=== PATIENT | female | born 1985 | race Caucasian/White ===

== ENCOUNTER 2019-12-01 19:26 | Inpatient (IN) ==
--- OUTSIDE RECORDS SUMMARY | 2019-12-01 19:36 | External Medical Summary | Continuity of Care Document ---
:1985 Author Name Suellen Vivar Address Unavailable Unavailable , Care Team Providers Name Role Phone Tabitha Pérez M.D. Unavailable [email or web address] PCP, NO Unavailable Unavailable Unavailable Unavailable Unavailable Problems Encounter for initial prescription of contraceptives (V25.02 ) (Z30.019) Amenorrhea (626.0) (N91.2) Abnormal weight loss (783.21) (R63.4) Lump or mass in breast (611.72) (N63.0) Unconfirmed (V72.40) (Z32.00) Fatigue (780.79) (R53.83) Vaginal discharge (623.5) (N89.8) Menorrhagia (626.2) (N92.0) Mammogram abnormal (793.80) (R92.8) Encounter for routine pelvic examination (V72.31) (Z01.419) Encounter for Rh blood typing (V72.86) (Z01.83) Breast mass (611.72) (N63.0) Current Smoker Allergies and Adverse Reactions Penicillins (Allergy) Reaction: Swelling Medications Norethindrone Acetate 5 MG Oral Tablet; One tablet 4 times daily for 4 days, 3 times daily for 4 days, 2 times daily for 4 days, then daily for 4 days Cb Pérez Start: 15-Sep-2012 Quantity: 40 Refills: 0 Procedures History of Tonsillectomy Status: Complet ed History of Dilation And Curettage Status : Completed History of Tonsillectomy Status: Complet ed Encounter for initial prescription of contraceptives Immunizations Immunizations not documented Family History Mother Family history of Hypertension (V17.49) Status: Active Family history of Lung Cancer (V16.1) Status: Active Family history of Adopted Status: Active Social History - Smoking Status Smoker. current status unknown Smoker. current status unknown Plan of Treatment Planned Observations Planned Goals not documented Results No Known Results Results not documented
[2019-12-01] MEDS ORDERED: OXYTOCIN 30 UNITS/500 ML BAG IV PRN (20:47)
[2019-12-01 21:24] LABS: Hematocrit (blood only) 40.6 % (37-47); Hemoglobin 14.2 g/dL (12.0-16.0); Mean Corpuscular Hemoglobin 34.6 pg (25-34); Mean Platelet Volume 11.5 fL (7.4-10.4); Platelet Count 138 K/uL (130-400); RDW Coefficient of Variation 13.2 % (11.5-14.5); RDW Standard Deviation 47.5 fL (36.4-46.3); White Blood Count 9.73 K/uL (4.8-10.8)
[2019-12-01] MEDS ORDERED: VANCOMYCIN HCL 1,000 MG in SODIUM CHLORIDE 0.9% 250 ML IV PRN (21:35)
--- NOTE | 2019-12-01 21:43 | Obstetrical Progress Note ---
Date of Service December 01, 2019 Subjective Admit Note 33 F [id number] at 37.5 weeks with SROM now 0. GBS status unknown as patient presented to [facility] who was to deliver at [facility]. T Cat 1. Will start antibiotics and patient planning for epidural. Results & Data Vital Signs (Past 12 Hours) Vital Signs Temp Pulse Resp BP 12/01/19 21:00 20 12/01/19 20:30 20 12/01/19 20:00 20 12/01/19 19:57 37.1 C 20 12/01/19 19:43 133 H 116/76
[2019-12-01] MEDS ORDERED: VANCOMYCIN HCL 1,000 MG in SODIUM CHLORIDE 0.9% 250 ML IV STA (21:54)
[2019-12-01] MEDS: LACTATED RINGER'S 1,000 ML IV PRN (22:14)
[2019-12-02] MEDS ORDERED: BUPIVACAINE 0.25% 30 ML VIAL ONE (00:15)
[2019-12-02] MEDS ORDERED: ePHEDrine sulfate 50 MG/ML AMP ONE (00:15)
[2019-12-02] MEDS ORDERED: fentaNYL citrate 100 MCG/2 ML VIAL ONE (00:15)
[2019-12-02] MEDS ORDERED: fentaNYL 2MCG/ML ROPIV 1.25MG/ML 100 ML BAG EPI ONE (00:16)
[2019-12-02] MEDS: LACTATED RINGER'S 1,000 ML IV PRN ×2 (00:47→08:30)
[2019-12-02] MEDS ORDERED: DiphenhydrAMINE HCL 50 MG/ML VIAL IV PRN (01:02)
[2019-12-02] MEDS ORDERED: NALBUPHINE HCL INJ 10 MG/ML AMP IV PRN (01:02)
[2019-12-02] MEDS ORDERED: fentaNYL 2MCG/ML ROPIV 1.25MG/ML 100 ML BAG EPI PRN (01:02)
[2019-12-02] MEDS ORDERED: ONDANSETRON INJ 2 MG/ML 2 ML VIAL IV PRN (01:02)
[2019-12-02] MEDS ORDERED: ePHEDrine sulfate 50 MG/ML AMP IV PRN (01:02)
[2019-12-02] MEDS ORDERED: NALOXONE HCL 1 MG in SODIUM CHLORIDE 0.9% 1000ML 1,000 ML IV PRN (01:02)
[2019-12-02] MEDS ORDERED: NALOXONE HCL 0.4 MG/1 ML VIAL/CARP IV PRN (01:02)
--- NOTE | 2019-12-02 01:07 | Anesthesiology Consultation ---
Date of Service December 02, 2019 Assessment & Plan (1) Encounter for pre-operative examination: Chart Review Chart Review: Acceptable Risk for Labor Epidural Consults Requested none ASA ASA2 Proposed Anesthesia Anesthesia Type: Labor Epidural Risk / Benefits Reviewed With: PT / POA / Parent / Guardian, Accepts Plan and Informed Consent Obtained History Height/Weight Height: 5 ft 1 in Weight: 71.214 kg Allergies Allergy/AdvReac Type Severity Reaction Status Date / Time amoxicillin Allergy Mild UNKNOWN Verified 06/24/12 21:49 Penicillins Allergy Unknown Rash Verified 12/01/19 19:54 acetaminophen [From Percocet] Allergy Rash Verified 12/01/19 19:54 oxycodone [From Percocet] Allergy Rash Verified 12/01/19 19:54 Medications Home Medications Medication Instructions Recorded Confirmed Last Taken aspirin 81 mg PO DAILY 12/01/19 12/01/19 12/01/19 vit-iron fum-folic ac 1 tab PO DAILY 12/01/19 12/01/19 12/01/19 [ Vitamin] Active Medications Generic Name Dose Route Start Last Admin Trade Name Freq PRN Reason Stop Dose Admin Lactated Ringer's 1,000 mls @ 125 mls/hr 12/01/19 20:47 12/02/19 00:47 Lr IV 12/03/19 20:46 125 mls/hr .Q8H PRN Administration L&D Protocol Protocol Past Medical History Medical History Depression Exercise / Class Metabolic Activity II 4-5 Yardwork/Stairs/Walk up hill Past Surgical History Surgical History H/O dilation and curettage History of tonsillectomy History of tooth extraction Past Anesthesia History No Hx of Anesthesia Complications and No Family Hx of Anesthesia Complications History of PONV No Hx of PONV and No Hx of Motion Sickness Social History Smoking Status: Current every day smoker tobacco type: cigarettes Smoking cigarettes per day: 15 Do You Dip or Chew Tobacco: No Hx Alcohol Use: No Hx Substance Use: No substance use type: does not use Physical Exam Vital Signs Last Vital Signs Temp 97.7 F 12/01/19 23:00 Pulse 102 H 12/02/19 01:01 Resp 18 12/01/19 23:00 BP 122/81 12/02/19 00:49 Pulse Ox 95 12/02/19 01:01 ENMT Mouth: no dentition abnormality Thyromental Distance: > or= 3.5 Finger Breadths Mallampati Class: II Neck normal visual inspection Respiratory normal respiratory effort Auscultation: lungs clear to auscultation bilaterally Cardiovascular Rate/Rhythm: regular rate and regular rhythm Testing Laboratory Results 12/01/19 20:59
[2019-12-02] MEDS ORDERED: OXYTOCIN 30 UNITS/500 ML BAG IV PRN ×2 (01:41→10:45)
--- NOTE | 2019-12-02 01:44 | Obstetrical Progress Note ---
Date of Service December 02, 2019 Physical Exam Genitourinary: OB Exam Abdomen: + estimated weight (7-8 lbs) and + irregular contractions Manual OB Exam: + amniotic fluid clear OB Exam Monitor Tracing: + external FHT monitor used, + external uterine monitor used, + category I and + normal FHT variability cervix unchanged will start Oxytocin to augment contractions Results & Data Vital Signs (Past 12 Hours) Vital Signs Temp Pulse Resp BP Pulse Ox 12/02/19 01:41 117 H 96 12/02/19 01:38 102 H 114/58 L 12/02/19 01:36 101 H 115/64 92 12/02/19 01:34 105 H 113/68 12/02/19 01:32 102 H 111/72 12/02/19 01:31 99 H 93 12/02/19 01:30 107 H 131/73 12/02/19 01:28 100 H 121/65 12/02/19 01:26 111 H 117/66 94 12/02/19 01:24 96 H 121/69 12/02/19 01:21 103 H 95 12/02/19 01:16 107 H 96 12/02/19 01:12 116 H 132/80 12/02/19 01:11 107 H 98 12/02/19 01:06 109 H 96 12/02/19 01:01 102 H 95 12/02/19 00:56 110 H 95 12/02/19 00:52 106 H 94 12/02/19 00:51 104 H 94 12/02/19 00:49 93 H 122/81 12/02/19 00:46 99 H 96 12/02/19 00:41 103 H 96 12/02/19 00:36 112 H 97 12/02/19 00:33 106 H 93 12/02/19 00:31 102 H 97 12/02/19 00:26 101 H 97 12/02/19 00:23 110 H 118/76 12/02/19 00:21 99 H 95 12/01/19 23:01 113 H 119/64 12/01/19 23:00 36.5 C 18 12/01/19 22:30 20 12/01/19 21:00 20 12/01/19 20:30 20 12/01/19 20:00 20 12/01/19 19:57 37.1 C 20 12/01/19 19:43 133 H 116/76
--- NOTE | 2019-12-02 08:42 | Obstetrical Progress Note ---
Date of Service December 02, 2019 Physical Exam Genitourinary: Manual OB Exam: + cervical dilation 4 cm and 5 cm, + cervical effacement 90%, + station -1 and + amniotic fluid (small pocket of fluid ruptured with amni-hook) clear OB Exam Monitor Tracing: + external FHT monitor used, + external uterine monitor used, + category I and + normal FHT variability Results & Data Vital Signs (Past 12 Hours) Vital Signs Temp Pulse Resp BP Pulse Ox 12/02/19 08:38 73 91 12/02/19 08:36 71 91 12/02/19 08:31 75 90 12/02/19 08:29 79 91 12/02/19 08:26 85 90 12/02/19 08:25 78 98/55 L 12/02/19 08:24 78 91 12/02/19 08:21 78 91 12/02/19 08:18 71 91 12/02/19 08:16 78 91 12/02/19 08:12 72 91 12/02/19 08:11 73 92 12/02/19 08:09 80 103/61 12/02/19 08:06 103 H 93 12/02/19 08:01 94 H 93 12/02/19 07:56 95 H 94 12/02/19 07:54 92 H 105/65 12/02/19 07:51 89 91 12/02/19 07:49 84 91 12/02/19 07:46 97 H 93 12/02/19 07:41 91 H 94 12/02/19 07:39 100 H 100/56 L 12/02/19 07:36 79 93 12/02/19 07:31 91 H 92 12/02/19 07:26 95 H 94 12/02/19 07:24 88 105/61 12/02/19 07:21 96 H 95 12/02/19 07:19 90 90 12/02/19 07:16 87 92 12/02/19 07:12 74 91 12/02/19 07:11 78 92 12/02/19 07:09 36.9 C 81 18 94/51 L 12/02/19 07:06 85 93 12/02/19 07:01 96 H 94 12/02/19 06:56 95 H 93 12/02/19 06:54 77 100/56 L 12/02/19 06:51 75 92 12/02/19 06:46 82 92 12/02/19 06:41 104 H 93 12/02/19 06:36 88 91 12/02/19 06:35 82 91 12/02/19 06:31 91 H 93 12/02/19 06:30 36.7 C 16 12/02/19 06:28 36.7 C 16 12/02/19 06:26 93 H 93 12/02/19 06:25 88 104/61 12/02/19 06:21 92 H 95 12/02/19 06:16 89 95 12/02/19 06:11 101 H 96 12/02/19 06:09 86 106/61 12/02/19 06:06 73 90 12/02/19 06:01 76 90 12/02/19 05:56 74 90 12/02/19 05:54 73 94/55 L 12/02/19 05:51 74 91 12/02/19 05:46 78 91 12/02/19 05:41 76 91 12/02/19 05:40 77 91 12/02/19 05:39 82 97/54 L 12/02/19 05:36 80 91 12/02/19 05:31 76 91 12/02/19 05:30 16 12/02/19 05:29 78 91 12/02/19 05:26 77 91 12/02/19 05:25 76 97/53 L 12/02/19 05:24 77 91 12/02/19 05:21 79 92 12/02/19 05:18 82 91 12/02/19 05:16 87 92 12/02/19 05:11 84 91 12/02/19 05:09 88 90/51 L 05 05:06 94 H 92 12/02/19 05:04 85 91 12/02/19 05:01 90 92 12/02/19 04:56 100 H 92 12/02/19 04:54 96 H 100/59 L 12/02/19 04:51 84 93 12/02/19 04:46 99 H 95 12/02/19 04:41 115 H 93 12/02/19 04:39 91 H 101/58 L 12/02/19 04:36 88 94 12/02/19 04:35 36.5 C 18 12/02/19 04:31 95 H 94 01/05/20 04:30 20 12/02/19 04:26 105 H 94 12/02/19 04:25 82 104/61 12/02/19 04:21 80 92 12/02/19 04:20 85 91 12/02/19 04:16 85 93 12/02/19 04:11 80 108/63 93 12/02/19 04:06 85 93 12/02/19 04:01 91 H 93 12/02/19 03:58 84 91 12/02/19 03:56 85 92 12/02/19 03:54 80 113/60 12/02/19 03:51 82 93 12/02/19 03:46 84 93 12/02/19 03:41 90 93 12/02/19 03:40 72 101/54 L 12/02/19 03:37 76 90 12/02/19 03:36 77 90 12/02/19 03:31 78 18 91 12/02/19 03:26 81 91 12/02/19 03:25 78 93/51 L 91 12/02/19 03:21 78 90 12/02/19 03:20 80 91 12/02/19 03:16 78 91 12/02/19 03:11 80 92 12/02/19 03:09 79 98/52 L 91 12/02/19 03:06 83 91 12/02/19 03:02 80 91 12/02/19 03:01 84 91 12/02/19 02:57 85 91 12/02/19 02:56 84 92 12/02/19 02:55 80 104/53 L 12/02/19 02:51 86 93 12/02/19 02:46 91 H 94 12/02/19 02:44 86 91 12/02/19 02:41 95 H 93 12/02/19 02:39 108 H 110/57 L 12/02/19 02:36 90 93 12/02/19 02:31 99 H 94 12/02/19 02:30 37.1 C 18 12/02/19 02:26 85 96 12/02/19 02:24 90 115/73 12/02/19 02:21 118 H 94 12/02/19 02:16 100 H 92 12/02/19 02:12 103 H 90 12/02/19 02:11 108 H 93 01/05/20 02:10 109 H 114/69 12/02/19 02:06 104 H 93 12/02/19 02:02 113 H 111/67 12/02/19 02:01 109 H 92 12/02/19 02:00 103 H 91 12/02/19 01:56 115 H 94 12/02/19 01:54 88 110/65 12/02/19 01:53 94 H 91 12/02/19 01:51 97 H 92 12/02/19 01:46 101 H 94 12/02/19 01:41 117 H 96 12/02/19 01:38 102 H 114/58 L 12/02/19 01:36 101 H 115/64 92 12/02/19 01:34 105 H 113/68 12/02/19 01:32 102 H 111/72 12/02/19 01:31 99 H 93 12/02/19 01:30 107 H 131/73 12/02/19 01:28 100 H 121/65 12/02/19 01:26 111 H 117/66 94 12/02/19 01:24 96 H 121/69 12/02/19 01:21 103 H 95 12/02/19 01:16 107 H 96 12/02/19 01:12 116 H 132/80 12/02/19 01:11 107 H 98 12/02/19 01:06 109 H 96 12/02/19 01:01 102 H 95 12/02/19 00:56 110 H 95 12/02/19 00:52 106 H 94 12/02/19 00:51 104 H 94 12/02/19 00:49 93 H 122/81 12/02/19 00:46 99 H 96 12/02/19 00:41 103 H 96 12/02/19 00:36 112 H 97 12/02/19 00:33 106 H 93 12/02/19 00:31 102 H 97 12/02/19 00:26 101 H 97 12/02/19 00:23 110 H 118/76 12/02/19 00:21 99 H 95 12/01/19 23:01 113 H 119/64 12/01/19 23:00 36.5 C 18 12/01/19 22:30 20 12/01/19 21:00 20
--- NOTE | 2019-12-02 10:28 | Delivery Summary ---
Vaginal Delivery Summary Date of Service December 02, 2019 Supervising Physician Co-Signing Physician Notes Delivery Note live male over intact perineum with delayed cord clamping with Apgars 8/9 weight pending. Cord blood obtained followed by spontaneous delivery of intact placenta. First degree tear repaired with 3/0 Vicryl suture. EBL 200 ml. Final sponge needle and instrument count are correct. Mom and baby stable.
[2019-12-02] MEDS ORDERED: SUPERCREAM 0.870% 15 GM JAR EXT PRN (10:45)
[2019-12-02] MEDS ORDERED: HYDROCORTISONE ACETATE 25 MG SUPP PR PRN (10:45)
[2019-12-02] MEDS ORDERED: BENZOCAINE 20% AER SPR 82.5 GM CAN EXT PRN (10:45)
[2019-12-02] MEDS ORDERED: bisacodyL 10 MG SUPP PR PRN (10:45)
--- NOTE | 2019-12-02 11:47 | Anesthesia Procedure Note ---
Date of Service December 02, 2019 Anesthesia Post Epidural Note Vital Signs Vital Signs: Temp Pulse Resp BP Pulse Ox 37.3 C 97 H 18 108/61 91 12/02/19 08:46 12/02/19 11:36 12/02/19 08:46 12/02/19 11:36 12/02/19 10:09 Notes Mental Status: alert / awake / arousable Nausea / Vomiting: adequately controlled Pain: adequately controlled Airway Patency, RR, SpO2: stable & adequate BP & HR: stable & adequate Hydration State: stable & adequate Neuraxial Anesthesia: was administered and sensory block is resolving Anesthetic Complications: no major complications apparent Epidural: Removed without complications and With tip intact
[2019-12-02] MEDS: IBUPROFEN 600 MG TAB PO PRN ×2 (12:46→20:10)
[2019-12-02] MEDS: ACETAMINOPHEN 325 MG TAB PO PRN ×2 (14:44→21:19)
[2019-12-02] MEDS: DOCUSATE SODIUM 100 MG CAP PO SCH (20:10)
[2019-12-03] MEDS: IBUPROFEN 600 MG TAB PO PRN (03:18)
[2019-12-03 07:13] LABS: Hematocrit (blood only) 34.8 % (37-47); Hemoglobin 11.9 g/dL (12.0-16.0); Mean Corpuscular Hemoglobin 34.2 pg (25-34); Mean Corpuscular Hgb Conc 34.2 g/dL (32-36); Mean Platelet Volume 11.6 fL (7.4-10.4); Platelet Count 132 K/uL (130-400); RDW Coefficient of Variation 13.4 % (11.5-14.5); RDW Standard Deviation 48.3 fL (36.4-46.3); Red Blood Count 3.48 M/uL (4.2-5.4); White Blood Count 7.55 K/uL (4.8-10.8)
[2019-12-03] MEDS ORDERED: PRENATAL VITAMIN 1 TAB PO SCH (08:00)
[2019-12-03] MEDS: DOCUSATE SODIUM 100 MG CAP PO SCH (08:58)
[2019-12-03] MEDS ORDERED: NON-FORMULARY MEDICATION (Prenatal Vit-Iron Fum-Folic Ac [Prenatal Vitamin] 1 TAB) PO SCH (09:00)
[2019-12-03] MEDS ORDERED: ASPIRIN 81 MG ECTAB PO SCH (09:00)
[2019-12-03] MEDS ORDERED: DIPHTHERIA/TETANUS/PERTUSSIS 0.5 ML SYR/VIAL IM ONE (09:00)
--- NOTE | 2019-12-03 09:30 | Obstetrical Progress Note ---
Date of Service December 03, 2019 Assessment & Plan (1) Normal delivery: PPD #1 pt doing well pt wishes to be discharged home Pt tells me she is not APS and is off Lovenox review of chart confirms she was d/ce of med on 07/2019 and tx with ASA Subjective Ambulation: ambulating normally Voiding: no voiding problems Passing Gas:: Yes Diet Tolerance:: regular diet Lochia:: Small Feeding Type:: breast feeding Review of Systems All systems reviewed & are unremarkable except as noted in HPI & below Physical Exam Constitutional WD/WN, vitals as above well developed and well nourished Eyes PERRL, conjunctivae normal, anicteric sclerae Neck trachea midline, no thyromegaly Respiratory normal respiratory effort, lungs clear to auscultation Auscultation: no crackles, no rales and no wheezes Cardiovascular RRR, no murmur, no edema Gastrointestinal (Abdomen) normal bowel sounds, soft, nontender, no hepatosplenomegaly Uterus is below umbilicus Musculoskeletal no cyanosis or clubbing, extremities motor strength 5/5 Skin no rashes, warm and dry Neurologic patellar DTR's 2+ bilat, sensation intact Psychiatric A+Ox3, euthymic affect Genitourinary normal external appearance Results & Data Vital Signs (Past 12 Hours) Vital Signs Temp Pulse Resp BP Pulse Ox 12/03/19 03:15 36.6 C 70 16 118/77 98 12/02/19 23:05 36.6 C 80 16 104/66 97
[2019-12-03] MEDS ORDERED: bisacodyL 5 MG TABEC PO SCH (20:00)
== END 2019-12-03 13:04 | disposition home or self-care (01) | DRG 807 ==
LOC: 4S1 19:26 → OPB 19:26 → 4S1 20:47 → 4S2 12-02 13:37